=== PATIENT | male | born 1990 | race Caucasian/White ===

== ENCOUNTER → 2024-04-16 14:16 | Outpatient (REF) | payer MEDICARE, OTHER, SELFPAY | LOC: RCS 14:16 | PROVIDERS: ATTENDING PHYSICIAN Family Medicine | DX: Z13.6 Encounter for screening for cardiovascular disorders (principal) | CPT/HCPCS: 93005 ==

== ENCOUNTER 2024-11-26 06:25 | Day surgery (SDC) | payer MEDICARE, OTHER, SELFPAY | END 2024-11-26 13:56 | disposition home or self-care (01) | LOC: GI 06:25 | PROVIDERS: ATTENDING PHYSICIAN Student in an Organized Health Care Education/Training Program | DX: R12 Heartburn (principal); R11.0 Nausea; K31.89 Other diseases of stomach and duodenum | CPT/HCPCS: 43239; 88305; 88342 ==

== ENCOUNTER → 2025-01-30 08:12 | Outpatient (REF) | payer MEDICARE, OTHER, SELFPAY | LOC: RAD 08:12 | PROVIDERS: ATTENDING PHYSICIAN Student in an Organized Health Care Education/Training Program; FAMILY PHYSICIAN Family Medicine | DX: K21.9 Gastro-esophageal reflux disease without esophagitis (principal) | CPT/HCPCS: 78264; A9541 ==